=== PATIENT | male | born 1965 | race American Indian/Alaskan Native ===

== ENCOUNTER 2016-05-27 02:26 | Emergency (ER) | payer OTHER ==
[2016-05-27 02:28] VITALS: BMI 32.8
[2016-05-27 02:54] VITALS: BP 119/78; PULSE 60; RESP 20; TEMP 97.9; O2SAT 96
--- NOTE | 2016-05-27 03:03 | C.PDOC ---
History Of Present Illness 50 year old patient, with a past medical history of hypertension, anxiety, arthritis, back problems, hypertension, and GERD, presents to the ED complaining of mild discolored skin by the left ankle. Patient is concerned about a DVT. Patient has a history for extensive ED visits and extensive work- ups that are negative. Patient denies shortness of breath, chest pain, headache , dizziness, numbness or weakness. Time Seen by Provider: 05/27/16 02:53 Chief Complaint (Nursing): Lower Extremity Problem/Injury History Per: Patient History/Exam Limitations: no limitations Onset/Duration Of Symptoms: Other Current Symptoms Are (Timing): Still Present Severity: Mild Pain Scale Rating Of: 3 Recent travel outside of the [place]: No Past Medical History Reviewed: Historical Data, Nursing Documentation, Vital Signs Vital Signs: Last Vital Signs Temp 97.9 F 05/27/16 02:44 Pulse 60 05/27/16 02:44 Resp 20 05/27/16 02:44 BP 119/78 05/27/16 02:44 Pulse Ox 96 05/27/16 04:39 - Medical History PMH: Anxiety, Arthritis, Back Problems (HERNIATED DISKS), GERD, HTN - [facility] Procedures INJECT/INFUSE ELECTROLYT (04/07/13) INJECT/INFUSE NEC (04/28/14) Family History: States: [place] - Social History Hx Tobacco Use: No Hx Alcohol Use: No Hx Substance Use: No - Immunization History Hx Tetanus Toxoid Vaccination: Yes Hx Influenza Vaccination: No Hx Pneumococcal Vaccination: No Review Of Systems Except As Marked, All Systems Reviewed And Found Negative. Cardiovascular: Negative for: Chest Pain Respiratory: Negative for: Shortness of Breath Skin: Positive for: Other (discoloration skin near ankle) Neurological: Negative for: Weakness, Numbness, Headache, Dizziness Physical Exam - Physical Exam Appears: Non-toxic, No Acute Distress Skin: Warm, Dry, Other (mildly dark discoloration at the left ankle; (-)edema (- )swelling) Head: Atraumatic, Normacephalic Neck: Normal ROM, Supple Chest: Symmetrical Cardiovascular: Rhythm Regular Respiratory: Normal Breath Sounds, No Rales, No Rhonchi, No Wheezing Gastrointestinal/Abdominal: Soft, No Tenderness Back: Normal Inspection, No CVA Tenderness Extremity: Normal ROM Neurological/Psych: Oriented x3, Normal Speech, Normal Cognition Gait: Steady ED Course And Treatment O2 Sat by Pulse Oximetry: 96 (RA) Pulse Ox Interpretation: Normal Medical Decision Making Medical Decision Making: mild skin discoloration of b/l ankle areas without edema nor neurological changes Radiology reviewed- pt with extensive w/u's in past all negative [address]'s 03/18 nuclear stress test and echo nl 09/13 CT C-spine neg 03/14 CT LS spine neg no w/u indicated now. considere underlying anxiety vs Munchausens. Disposition Doctor Will See Patient In The: Office Counseled Patient/Family Regarding: Studies Performed, Diagnosis - Disposition Referrals: [facility] [Outside] Disposition: HOME/ ROUTINE Disposition Time: 03:02 Condition: GOOD Additional Instructions: follow-up in our outpatient clinic for further eval as needed Forms: General Discharge Instructions - Clinical Impression Clinical Impression: Discolored skin - Scribe Statement The provider has reviewed the documentation as recorded by the Scribe Joan Ren Provider Attestation: All medical record entries made by the Scribe were at my direction and personally dictated by me. I have reviewed the chart and agree that the record accurately reflects my personal performance of the history, physical exam, medical decision making, and the department course for this patient. I have also personally directed, reviewed, and agree with the discharge instructions and disposition.
== END 2016-05-27 03:10 | disposition home or self-care (01) ==
LOC: C.ER 02:26
DX: L98.8 Other specified disorders of the skin and subcutaneous tissue (principal)

== ENCOUNTER 2017-03-31 11:59 | Emergency (ER) | payer MEDICAID, OTHER ==
[2017-03-31 11:59] VITALS: BMI 33.0
[2017-03-31 12:21] VITALS: RESP 18
--- NOTE | 2017-03-31 13:02 | C.PDOC ---
History Of Present Illness NEW R LEG/ANKLE PAIN SWELLING X 4 DAYS. PS AWOKE W SX INITIALLY R ANKLE BUT NOW R CALF. NO TRAUMA. WORSE W WT BEAR. NO CP, SOB. NO PE RISK FACTORS. LIMITED RELIEF W MOTRIN 800 MG LAST DOSE @ 2300 EXAM NAD NONTOXIC EXT R LE >L LEG MILD. +R MAL MALL SWELL NONTEND. ATRAUM NO DEFORM SKIN NEG GOOD PERFUSION Time Seen by Provider: 03/31/17 12:25 Chief Complaint (Nursing): Lower Extremity Problem/Injury History Per: Patient History/Exam Limitations: no limitations Onset/Duration Of Symptoms: Days (4) Current Symptoms Are (Timing): Still Present Past Medical History Reviewed: Historical Data, Nursing Documentation, Vital Signs Vital Signs: Last Vital Signs Temp 98.2 F 03/31/17 12:15 Pulse 65 03/31/17 12:15 Resp 18 03/31/17 12:15 BP 129/90 03/31/17 12:15 Pulse Ox 99 03/31/17 13:24 - Medical History PMH: Anxiety, Arthritis, Back Problems (HERNIATED DISKS), GERD, HTN - [facility] Procedures INJECT/INFUSE ELECTROLYT (04/07/13) INJECT/INFUSE NEC (04/28/14) Family History: States: [place] - Social History Hx Tobacco Use: No Hx Alcohol Use: No Hx Substance Use: No - Immunization History Hx Tetanus Toxoid Vaccination: No Hx Influenza Vaccination: No Hx Pneumococcal Vaccination: No Review Of Systems Except As Marked, All Systems Reviewed And Found Negative. Constitutional: Negative for: Fever Cardiovascular: Negative for: Chest Pain Respiratory: Negative for: Shortness of Breath Musculoskeletal: Positive for: Leg Pain (right leg/ankle pain and swelling) Skin: Negative for: Rash Neurological: Negative for: Weakness, Numbness Physical Exam - Physical Exam Appears: Non-toxic Skin: Warm, Dry, No Rash, Other (Bilateral legs, skin intact) Oral Mucosa: Moist Respiratory: Normal Breath Sounds, No Rales, No Rhonchi, No Stridor, No Wheezing Extremity: Normal ROM, Capillary Refill (<2 secs), No Deformity, Other ((+) RLE> L leg swelling. Right malleolus swelling, non tender.) Neurological/Psych: Oriented x3, Normal Speech, Normal Motor ED Course And Treatment O2 Sat by Pulse Oximetry: 99 (RA) Pulse Ox Interpretation: Normal - CT Scan/US DOPPLER Other Rad Studies (CT/US): Radiology Report Reviewed (PER [employer] REPORT: NEG) Medical Decision Making Medical Decision Making: PLAN: * Venous Duplex * Toradol IM Disposition Counseled Patient/Family Regarding: Studies Performed, Diagnosis, Need For Followup, Rx Given - Disposition Referrals: [facility] [Outside] [facility] at [facility] [Outside] [facility] [Other] Disposition: HOME/ ROUTINE Disposition Time: 14:52 Condition: IMPROVED Prescriptions: Acetaminophen with Codeine [Tylenol with Codeine No. 3 300 mg-30 mg] 1 tab PO Q6 PRN #12 tab PRN Reason: Pain, Moderate (4-7) Instructions: Leg Pain (ED), Swollen Joint (ED) Forms: [facility] (Slovenian), Work Excuse - Clinical Impression Clinical Impression: Leg swelling, Ankle pain - Scribe Statement The provider has reviewed the documentation as recorded by the Winteribjose d Schmidt Provider Attestation: All medical record entries made by the Winteribjose d were at my direction and personally dictated by me. I have reviewed the chart and agree that the record accurately reflects my personal performance of the history, physical exam, medical decision making, and the department course for this patient. I have also personally directed, reviewed, and agree with the discharge instructions and disposition.
[2017-03-31 15:09] VITALS: BP 126/77; PULSE 60; TEMP 97.9; O2SAT 98
--- NOTE | 2017-03-31 16:49 | VASCLAB ---
PROCEDURE: Right Lower Extremity Venous Duplex Exam. HISTORY: SWELLING PRIORS: None. TECHNIQUE: Right common femoral, femoral, popliteal and posterior tibial, peroneal and great saphenous veins were evaluated. Flow was assessed with color Doppler, compressibility, assessment of phasic flow and augmentation response. Report prepared by LEANNA Davidson, RVT FINDINGS: RIGHT: 1. Common Femoral Vein: 1.1. Compressibility - Fully compressible: Thrombus - None: Flow - Phasic: Augmentation -Normal: Reflux - None. 2. Femoral Vein: 2.1. Compressibility - Fully compressible: Thrombus - None: Flow - Phasic: Augmentation -Normal: Reflux - None. 3. Popliteal Vein: 3.1. Compressibility - Fully compressible: Thrombus - None: Flow - Phasic: Augmentation -Normal: Reflux - None. 4. Posterior Tibial Vein: 4.1. Compressibility - Fully compressible: Thrombus - None: Flow - Phasic: Augmentation -Normal: Reflux - None. 5. Peroneal Vein: 5.1. Compressibility - Fully compressible: Thrombus - None: Flow - Phasic: Augmentation -Normal: Reflux - None. 6. Great Saphenous Vein: 6.1. Compressibility - Fully compressible: Thrombus -None: Flow - Phasic: Augmentation - Normal: Reflux - None. OTHER FINDINGS: IMPRESSION: No evidence of deep or superficial vein thrombosis of the right lower extremity with excellent venous flow. Normal valve function noted of the right side. Normal venous flow noted in the left common femoral vein.
== END 2017-03-31 15:09 | disposition home or self-care (01) ==
LOC: C.ER 11:59
DX: M25.571 Pain in right ankle and joints of right foot (principal); M79.89 Other specified soft tissue disorders
CPT/HCPCS: 93971; 96372; 99284; J1885

== ENCOUNTER 2018-05-27 19:42 | Emergency (ER) | payer MEDICAID, OTHER ==
[2018-05-27 19:42] VITALS: BMI 31.0
[2018-05-27 20:19] LABS: BASO # 0.1 K/uL (0.0-0.2); BASO % 1.2 % (0.0-2.0); EOS # 0.1 K/uL (0.0-0.7); EOS % 2.3 % (0.0-4.0); HEMOGLOBIN 14.7 g/dL (12.0-18.0); LYMPH # 2.4 K/uL (1.0-4.3); LYMPH % 40.1 % (20.0-40.0); MEAN CELL VOLUME 86.7 fL (80.0-94.0); MEAN CORPUSCULAR HEMOGLOBIN 28.8 pg (27.0-31.0); MEAN CORPUSCULAR HGB CONC 33.2 g/dL (33.0-37.0); MEAN PLATELET VOLUME 8.3 fL (7.2-11.7); MONO # 0.7 K/uL (0.0-0.8); MONO % 11.6 % (0.0-10.0); NEUT # 2.6 K/uL (1.8-7.0); NEUT % 44.8 % (50.0-75.0); RBC 5.1 Mil/uL (4.40-5.90); RED CELL DISTRIBUTION WIDTH 14.1 % (11.5-14.5); WHITE BLOOD COUNT 5.9 K/uL (4.8-10.8)
[2018-05-27 20:35] LABS: ALB/GLOB RATIO 1.4 (1.0-2.1); ALBUMIN 4.1 g/dL (3.5-5.0); ALT/SGPT 19 U/L (21-72); AST/SGOT 34 U/L (17-59); BLOOD UREA NITROGEN 16 mg/dL (9-20); CALCIUM 8.6 mg/dl (8.6-10.4); GFR NON-AFRICAN AMERICAN > 60
--- NOTE | 2018-05-27 20:41 | C.PDOC ---
History Of Present Illness Patient is a 52 year old male who presents to the ED c/o left sided chest tightness that began today at work. He denies any SOB, radiation of pain, or injury. Time Seen by Provider: 05/27/18 20:07 Chief Complaint (Nursing): Chest Pain History Per: Patient History/Exam Limitations: no limitations Onset/Duration Of Symptoms: Hrs Current Symptoms Are (Timing): Still Present Quality: Tightness (left sided chest) Recent travel outside of the [place]: No Additional History Per: Patient Past Medical History Reviewed: Historical Data, Nursing Documentation, Vital Signs Vital Signs: Last Vital Signs Temp 98.6 F 05/27/18 19:53 Pulse 68 05/27/18 19:53 Resp 20 05/27/18 19:53 BP 138/86 05/27/18 19:53 Pulse Ox 99 05/27/18 19:53 - Medical History PMH: Anxiety, Arthritis, Back Problems (HERNIATED DISKS), GERD, HTN Denies: Chronic Kidney Disease Surgical History: No Surg Hx - [facility] Procedures INJECT/INFUSE ELECTROLYT (04/07/13) INJECT/INFUSE NEC (04/28/14) Family History: States: [place] - Social History Hx Tobacco Use: No Hx Alcohol Use: No Hx Substance Use: No - Immunization History Hx Tetanus Toxoid Vaccination: No Hx Influenza Vaccination: No Hx Pneumococcal Vaccination: No Review Of Systems Except As Marked, All Systems Reviewed And Found Negative. Cardiovascular: Positive for: Chest Pain (left sided chest tightness) Physical Exam - Physical Exam Appears: Non-toxic, No Acute Distress Skin: Normal Color, Warm, Dry Head: Atraumatic, Normacephalic Eye(s): bilateral: Normal Inspection, PERRL, EOMI Oral Mucosa: Moist Chest: Symmetrical Cardiovascular: Rhythm Regular, No Murmur Respiratory: Normal Breath Sounds, No Rales, No Rhonchi, No Wheezing Gastrointestinal/Abdominal: Normal Exam, Soft, No Tenderness Extremity: Bilateral: Atraumatic, Normal Color And Temperature, Normal ROM Neurological/Psych: Oriented x3, Normal Speech ED Course And Treatment - Laboratory Results Result Diagrams: 05/27/18 20:14 05/27/18 20:14 Lab Results: Total Bilirubin 0.3 mg/dL (0.2-1.3) 05/27/18 20:14 AST 34 U/L (17-59) 05/27/18 20:14 ALT 19 U/L (21-72) L D 05/27/18 20:14 Alkaline Phosphatase 84 U/L (38-126) 05/27/18 20:14 Total Protein 7.2 g/dL (6.3-8.3) 05/27/18 20:14 Albumin 4.1 g/dL (3.5-5.0) 05/27/18 20:14 Globulin 3.0 gm/dL (2.2-3.9) 05/27/18 20:14 Albumin/Globulin Ratio 1.4 (1.0-2.1) 05/27/18 20:14 ECG: Interpreted By Me, Viewed By Me ECG Rhythm: Sinus Rhythm Interpretation Of ECG: Normal intervals, normal axis. No ST/T wave abnormalities Rate From EC O2 Sat by Pulse Oximetry: 99 (on RA) Pulse Ox Interpretation: Normal Medical Decision Making Medical Decision Making: Plan: EKG Labs CXR Toradol 30mg IVP Heart score 2 patient with 2 sets of negative cardiac enzymes. patient states improvement will discharge home to follow up with pmd within 2 days Disposition Counseled Patient/Family Regarding: Studies Performed, Diagnosis, Need For Followup - Disposition Referrals: Samanta Houston MD [Medical Doctor] - Disposition: HOME/ ROUTINE Disposition Time: 00:09 Condition: STABLE Additional Instructions: follow up with your doctor within 2 days call to make an appointment return to ER if symptoms worsens or progress Instructions: Chest Pain (DC) Forms: General Discharge Instructions, [facility] (Armenian), Work Excuse - Clinical Impression Clinical Impression: Chest pain - Scribe Statement The provider has reviewed the documentation as recorded by the Juvencio [place] All medical record entries made by the Winteribjose d were at my direction and personally dictated by me. I have reviewed the chart and agree that the record accurately reflects my personal performance of the history, physical exam, medical decision making, and the department course for this patient. I have also personally directed, reviewed, and agree with the discharge instructions and disposition.
[2018-05-27 20:44] LABS: B-TYPE NATRIURETIC PEPTIDE 29.8 pg/mL (0-900)
[2018-05-27 23:24] VITALS: BP 128/90; PULSE 65; RESP 16; TEMP 98.5
[2018-05-28 00:09] VITALS: O2SAT 99
--- NOTE | 2018-05-28 09:54 | RAD ---
Date of service: 05/27/2018 PROCEDURE: CHEST RADIOGRAPH, 1 VIEW HISTORY: SOB COMPARISON: 03/23/2016. FINDINGS: LUNGS: The lungs are well inflated and clear. PLEURA: No pneumothorax or pleural effusion. CARDIOVASCULAR: The heart is normal in size. No aortic atherosclerotic calcifications present. OSSEOUS STRUCTURES: Within normal limits for the patient's age. VISUALIZED UPPER ABDOMEN: Normal. OTHER FINDINGS: None. IMPRESSION: No active pulmonary disease.
--- NOTE | 2018-05-28 11:05 | CARD ---
APPROVED REPORT Date of service: 05/27/2018 EKG Measurement Heart [id number] <Conclusion> Normal sinus rhythm with sinus arrhythmia Normal ECG
== END 2018-05-28 00:20 | disposition home or self-care (01) ==
LOC: C.ER 19:42
DX: R07.9 Chest pain, unspecified (principal); I10 Essential (primary) hypertension
CPT/HCPCS: 71045; 80053; 83880; 84484; 85025; 93005; 96374; 99284; J1885